=== PATIENT | male | born 1935 | race Asian ===

== ENCOUNTER 2017-02-01 05:49 | Inpatient (IN) | payer MEDICARE, OTHER ==
[~2017-02-01] VITALS: Ht 172.7 cm; Wt 74.8 kg
[2017-02-01] MEDS ORDERED: ALBUTEROL SULFATE 2.5 MG/0.5 ML NEB SOLUTION NEB ONE ×2 (06:00→06:02)
[2017-02-01] MEDS ORDERED: IPRATROPIUM BROMIDE 0.5 MG/2.5 ML NEB SOLUTION NEB ONE ×2 (06:00→06:02)
[2017-02-01] MEDS ORDERED: 0.9% SODIUM CHLORIDE 5 ML NEB SOLUTION NEB ONE (06:07)
[2017-02-01] MEDS ORDERED: FISH1CAP27 PO (06:13)
[2017-02-01] MEDS ORDERED: GABA-531 PO (06:13)
[2017-02-01] MEDS ORDERED: AMLO-512 PO (06:13)
[2017-02-01] MEDS ORDERED: LINA5TAB PO (06:13)
[2017-02-01] MEDS ORDERED: ATOR20TA86 PO (06:13)
[2017-02-01] MEDS ORDERED: VALS160T2 PO (06:13)
[2017-02-01] MEDS ORDERED: PIOG30TA2 PO (06:13)
[2017-02-01] MEDS ORDERED: METO-325 PO (06:13)
[2017-02-01] MEDS ORDERED: SPIR25 PO (06:13)
[2017-02-01] MEDS ORDERED: FUROSEMIDE 40 MG/4 ML VIAL IVP ONE (06:30)
[2017-02-01 06:40] LABS: BASOPHILS % (AUTO) 0.4 % (0.0-2.0); EOSINOPHILS % (AUTO) 4.6 % (1.0-6.0); HEMATOCRIT 46.6 % (41-53); HEMOGLOBIN 15.4 g/dL (13.5-17.5); LYMPHOCYTES # (AUTO) 2.8 K/uL (1.0-4.8); LYMPHOCYTES % (AUTO) 36.7 % (22.0-44.0); MEAN CORPUSCULAR HEMOGLOBIN 30.2 pg (26.0-34.0); MEAN CORPUSCULAR HGB CONC 32.9 G/dL (31.0-37.0); MEAN CORPUSCULAR VOLUME 92 fL (80-100); MONOCYTES # (AUTO) 0.4 K/uL (0.1-1.0); MONOCYTES % (AUTO) 5.7 % (2.0-9.0); NEUTROPHILS % (AUTO) 52.6 % (40.0-70.0); RED BLOOD CELL COUNT(AUTO) 5.08 MIL/uL (4.50-5.90); WHITE BLOOD COUNT (AUTO) 7.6 K/uL (4.5-11.0)
[2017-02-01 06:45] LABS: ANION GAP 9 mmol/L (8-16); CALCIUM, TOTAL 8.8 mg/dL (8.8-10.5); CARBON DIOXIDE 26 mmol/L (22-29); CHLORIDE 104 mmol/L (98-107); CREATININE 1.62 mg/dL (0.60-1.30); GLOMERULAR FILTR. RATE CALC 41 mL/min (>60); POTASSIUM 4.3 mmol/L (3.5-5.1); SODIUM SERUM 139 mmol/L (136-145); UREA NITROGEN, BLOOD 20 mg/dL (7-18)
[2017-02-01 06:57] LABS: PROTHROMBIN TIME 10.9 SEC (9.4-11.6)
[2017-02-01 07:08] LABS: APPEARANCE,URINE CLEAR (CLEAR); GLUCOSE, URINE (UA) NEGATIVE (NEGATIVE); KETONES,URINE NEGATIVE (NEGATIVE); LEUKOCYTE ESTERASE ,URINE NEGATIVE (NEGATIVE); OCCULT BLOOD,URINE NEGATIVE (NEGATIVE); PROTEIN,URINE SEE CONFIRM (NEGATIVE)
[2017-02-01 07:08] LABS: B-TYPE NATRIURETIC PEPTIDE 198 pg/mL (0-100)
[2017-02-01 07:10] LABS: ALANINE AMINOTRANSFERASE 133 U/L (12-78); ALBUMIN 3.6 g/dL (3.4-5.0); ASPARTATE AMINOTRANSFERASE 94 U/L (15-37); BILIRUBIN,TOTAL 0.6 mg/dL (0.1-1.0); CREATINE KINASE MB 4.1 ng/mL (0-5); CREATINE KINASE, TOTAL 285 U/L (39-308)
[2017-02-01 07:22] LABS: ADD UA MICROSCOPIC YES
[2017-02-01 07:24] LABS: SULFOSALICYLIC ACID,URINE 2+ (Negative)
[2017-02-01 07:25] LABS: RBC,URINE None Seen /HPF (0-2); WBC,URINE 0-2 /HPF (0-5)
[2017-02-01 07:26] LABS: SQUAMOUS EPITHELIAL CELL,UR Rare /LPF (None Seen)
[2017-02-01 10:49] LABS: PLATELET COUNT (AUTO) 148 K/uL (150-450)
[2017-02-01 11:17] LABS: GLUCOSE,POINT OF CARE 69 MG/DL (70-110)
[2017-02-01 12:51] LABS: GLUCOSE,POINT OF CARE 133 MG/DL (70-110)
[2017-02-01 13:36] VITALS: BP 119/59
[2017-02-01 15:24] VITALS: BP 127/65
[2017-02-01] MEDS ORDERED: ACETAMINOPHEN 325 MG TABLET PO PRN (15:45)
[2017-02-01] MEDS ORDERED: BISACODYL 10 MG RECTAL RECTAL SUPPOSITORY PR PRN (15:45)
[2017-02-01] MEDS ORDERED: ZOLPIDEM TARTRATE 5 MG TABLET PO PRN (15:45)
[2017-02-01] MEDS ORDERED: MORPHINE SULFATE 2 MG/ML SYRINGE IVP PRN (15:45)
[2017-02-01] MEDS ORDERED: HYDROCODONE/ACETAMINOPHEN 5-325 MG TABLET PO PRN (15:45)
[2017-02-01] MEDS ORDERED: MAGNESIUM HYDROXIDE SUSPENSION 30 ML UDCUP PO PRN (15:45)
[2017-02-01] MEDS ORDERED: ONDANSETRON HCL 4 MG/2 ML VIAL IVP PRN (15:45)
[2017-02-01] MEDS ORDERED: DEXTROSE 50%-WATER 25 GM/50 ML SYRINGE IVP PRN (16:00)
[2017-02-01] MEDS: HEPARIN SODIUM,PORCINE 5,000 UNITS/ML VIAL SQ SCH ×2 (16:11→23:31)
[2017-02-01 19:17] VITALS: BP 145/70
[2017-02-01] MEDS: GABAPENTIN 300 MG CAPSULE PO SCH (22:04)
[2017-02-01] MEDS: FISH OIL/OMEGA-3 FATTY ACIDS 500 MG CAPSULE PO SCH (22:04)
[2017-02-01] MEDS: DOCUSATE SODIUM 100 MG CAPSULE PO SCH (22:04)
[2017-02-01 23:29] VITALS: BP 154/73
[2017-02-02 05:12] VITALS: BP 153/68
[2017-02-02] MEDS: INSULIN ASPART 100 UNITS/ML SQ PRN (06:20)
[2017-02-02 07:49] VITALS: BP 159/71
[2017-02-02] MEDS: FISH OIL/OMEGA-3 FATTY ACIDS 500 MG CAPSULE PO SCH ×2 (08:11→21:12)
[2017-02-02] MEDS: GABAPENTIN 300 MG CAPSULE PO SCH ×2 (08:11→21:13)
[2017-02-02] MEDS: SPIRONOLACTONE 25 MG TABLET PO SCH (08:11)
[2017-02-02] MEDS: PANTOPRAZOLE SODIUM 40 MG DR TABLET PO SCH (08:11)
[2017-02-02] MEDS: HEPARIN SODIUM,PORCINE 5,000 UNITS/ML VIAL SQ SCH ×2 (08:11→16:44)
[2017-02-02] MEDS: FUROSEMIDE 20 MG/2 ML VIAL IVP SCH (08:11)
[2017-02-02] MEDS: ATORVASTATIN CALCIUM 20 MG TABLET PO SCH (08:11)
[2017-02-02] MEDS: DOCUSATE SODIUM 100 MG CAPSULE PO SCH ×2 (08:11→21:13)
[2017-02-02 11:09] VITALS: BP 148/71
[2017-02-02 12:27] LABS: GLUCOSE,POINT OF CARE 126 MG/DL (70-110)
[2017-02-02 16:00] VITALS: BP 138/75
[2017-02-02 18:08] LABS: GLUCOSE,POINT OF CARE 120 MG/DL (70-110)
[2017-02-02 18:08] LABS: GLUCOSE,POINT OF CARE 135 MG/DL (70-110)
[2017-02-02 18:12] LABS: GLUCOSE COMMENT 1 Received Meds; GLUCOSE,POINT OF CARE 143 MG/DL (70-110)
[2017-02-02 18:12] LABS: GLUCOSE,POINT OF CARE 130 MG/DL (70-110)
[2017-02-02 19:52] VITALS: BP 156/79
[2017-02-02 23:07] LABS: GLUCOSE COMMENT 1 Received Meds; GLUCOSE,POINT OF CARE 168 MG/DL (70-110)
[2017-02-02 23:36] VITALS: BP 149/75
[2017-02-03] MEDS: HEPARIN SODIUM,PORCINE 5,000 UNITS/ML VIAL SQ SCH ×3 (00:41→17:51)
[2017-02-03 04:49] VITALS: BP 150/78
[2017-02-03 06:56] LABS: BASOPHILS % (AUTO) 0.6 % (0.0-2.0); EOSINOPHILS % (AUTO) 5.8 % (1.0-6.0); HEMATOCRIT 46.7 % (41-53); HEMOGLOBIN 15.5 g/dL (13.5-17.5); LYMPHOCYTES # (AUTO) 2.1 K/uL (1.0-4.8); LYMPHOCYTES % (AUTO) 34.9 % (22.0-44.0); MEAN CORPUSCULAR HEMOGLOBIN 30.5 pg (26.0-34.0); MEAN CORPUSCULAR HGB CONC 33.2 G/dL (31.0-37.0); MEAN CORPUSCULAR VOLUME 92 fL (80-100); MONOCYTES # (AUTO) 0.5 K/uL (0.1-1.0); MONOCYTES % (AUTO) 7.5 % (2.0-9.0); NEUTROPHILS # (AUTO) 3.1 K/uL (1.8-7.7); NEUTROPHILS % (AUTO) 51.2 % (40.0-70.0); PLATELET COUNT (AUTO) 152 K/uL (150-450); RED BLOOD CELL COUNT(AUTO) 5.08 MIL/uL (4.50-5.90); RED CELL DISTRIBUTION WIDTH 13.4 % (11.5-14.5)
[2017-02-03 07:18] LABS: ALBUMIN 3.4 g/dL (3.4-5.0); BILIRUBIN,TOTAL 0.8 mg/dL (0.1-1.0); CALCIUM, TOTAL 8.9 mg/dL (8.8-10.5); CREATININE 1.51 mg/dL (0.60-1.30); POTASSIUM 4.4 mmol/L (3.5-5.1); TOTAL PROTEIN, SERUM 7.9 g/dL (6.4-8.2)
[2017-02-03 07:59] VITALS: BP 138/87
[2017-02-03] MEDS: FUROSEMIDE 20 MG/2 ML VIAL IVP SCH (08:43)
[2017-02-03] MEDS: DOCUSATE SODIUM 100 MG CAPSULE PO SCH ×2 (08:43→20:52)
[2017-02-03] MEDS: ATORVASTATIN CALCIUM 20 MG TABLET PO SCH (08:43)
[2017-02-03] MEDS: FISH OIL/OMEGA-3 FATTY ACIDS 500 MG CAPSULE PO SCH ×2 (08:44→20:52)
[2017-02-03] MEDS: GABAPENTIN 300 MG CAPSULE PO SCH ×2 (08:44→20:52)
[2017-02-03] MEDS: PANTOPRAZOLE SODIUM 40 MG DR TABLET PO SCH (08:44)
[2017-02-03 11:49] VITALS: BP 152/79
[2017-02-03] MEDS: SPIRONOLACTONE 25 MG TABLET PO SCH (11:56)
[2017-02-03 15:31] LABS: GLUCOSE,POINT OF CARE 119 MG/DL (70-110)
[2017-02-03 16:39] VITALS: BP 141/70
[2017-02-03] MEDS: INSULIN ASPART 100 UNITS/ML SQ PRN (17:55)
[2017-02-03 19:19] VITALS: BP 157/72
[2017-02-03 22:42] LABS: GLUCOSE COMMENT 1 Received Meds; GLUCOSE,POINT OF CARE 160 MG/DL (70-110)
[2017-02-03 23:57] VITALS: BP 130/72
[2017-02-04] MEDS: HEPARIN SODIUM,PORCINE 5,000 UNITS/ML VIAL SQ SCH ×3 (00:14→16:33)
[2017-02-04] MEDS ORDERED: SODIUM CHLORIDE 3% 15 ML NEB SOLUTION NEB ONE ×2 (01:13→10:34)
[2017-02-04 05:02] VITALS: BP 143/73
[2017-02-04 07:36] LABS: GLUCOSE,POINT OF CARE 127 MG/DL (70-110)
[2017-02-04 07:53] VITALS: BP 153/71
[2017-02-04] MEDS: FISH OIL/OMEGA-3 FATTY ACIDS 500 MG CAPSULE PO SCH ×2 (08:44→21:20)
[2017-02-04] MEDS: SPIRONOLACTONE 25 MG TABLET PO SCH (08:44)
[2017-02-04] MEDS: DOCUSATE SODIUM 100 MG CAPSULE PO SCH ×2 (08:44→21:19)
[2017-02-04] MEDS: FUROSEMIDE 20 MG TABLET PO SCH (08:44)
[2017-02-04] MEDS: GABAPENTIN 300 MG CAPSULE PO SCH ×2 (08:44→21:19)
[2017-02-04] MEDS: ATORVASTATIN CALCIUM 20 MG TABLET PO SCH (08:44)
[2017-02-04] MEDS: PANTOPRAZOLE SODIUM 40 MG DR TABLET PO SCH (08:44)
[2017-02-04 11:45] VITALS: BP 151/84
[2017-02-04 15:58] VITALS: BP 144/97
[2017-02-04 20:20] VITALS: BP 154/78
[2017-02-04] MEDS: INSULIN ASPART 100 UNITS/ML SQ PRN (21:25)
[2017-02-04 23:33] VITALS: BP 144/75
[2017-02-05] MEDS: HEPARIN SODIUM,PORCINE 5,000 UNITS/ML VIAL SQ SCH ×5 (00:20→23:21)
[2017-02-05 04:29] VITALS: BP 147/75
[2017-02-05] MEDS ORDERED: SODIUM CHLORIDE 3% 15 ML NEB SOLUTION NEB ONE ×3 (05:48→23:17)
[2017-02-05 07:27] LABS: GLUCOSE,POINT OF CARE 209 MG/DL (70-110)
[2017-02-05 07:54] VITALS: BP 157/67
[2017-02-05] MEDS: ATORVASTATIN CALCIUM 20 MG TABLET PO SCH (08:04)
[2017-02-05] MEDS: FISH OIL/OMEGA-3 FATTY ACIDS 500 MG CAPSULE PO SCH ×2 (08:04→21:00)
[2017-02-05] MEDS: SPIRONOLACTONE 25 MG TABLET PO SCH (08:05)
[2017-02-05] MEDS: PANTOPRAZOLE SODIUM 40 MG DR TABLET PO SCH (08:05)
[2017-02-05] MEDS: GABAPENTIN 300 MG CAPSULE PO SCH ×2 (08:05→21:00)
[2017-02-05] MEDS: DOCUSATE SODIUM 100 MG CAPSULE PO SCH ×2 (08:05→21:00)
[2017-02-05] MEDS: FUROSEMIDE 20 MG TABLET PO SCH (08:05)
[2017-02-05] MEDS: INSULIN ASPART 100 UNITS/ML SQ PRN ×2 (11:46→18:12)
[2017-02-05 11:51] VITALS: BP 121/85
[2017-02-05 11:59] LABS: GLUCOSE,POINT OF CARE 105 MG/DL (70-110)
[2017-02-05 11:59] LABS: GLUCOSE,POINT OF CARE 118 MG/DL (70-110)
[2017-02-05 12:03] LABS: GLUCOSE,POINT OF CARE 135 MG/DL (70-110)
[2017-02-05 15:15] VITALS: BP 139/68
[2017-02-05 17:22] LABS: GLUCOSE COMMENT 1 Received Meds; GLUCOSE,POINT OF CARE 196 MG/DL (70-110)
[2017-02-05 19:34] VITALS: BP 148/70
[2017-02-05 23:42] VITALS: BP 112/76
[2017-02-06 04:43] VITALS: BP 145/73
[2017-02-06 07:49] VITALS: BP 158/78
[2017-02-06] MEDS: PANTOPRAZOLE SODIUM 40 MG DR TABLET PO SCH (08:02)
[2017-02-06] MEDS: ATORVASTATIN CALCIUM 20 MG TABLET PO SCH (08:02)
[2017-02-06] MEDS: FUROSEMIDE 20 MG TABLET PO SCH (08:03)
[2017-02-06] MEDS: SPIRONOLACTONE 25 MG TABLET PO SCH (08:03)
[2017-02-06] MEDS: GABAPENTIN 300 MG CAPSULE PO SCH ×2 (08:03→21:40)
[2017-02-06] MEDS: FISH OIL/OMEGA-3 FATTY ACIDS 500 MG CAPSULE PO SCH ×2 (08:03→21:42)
[2017-02-06] MEDS: DOCUSATE SODIUM 100 MG CAPSULE PO SCH ×2 (08:03→21:40)
[2017-02-06 11:44] VITALS: BP 141/66
[2017-02-06 11:48] LABS: GLUCOSE,POINT OF CARE 131 MG/DL (70-110)
[2017-02-06] MEDS: INSULIN ASPART 100 UNITS/ML SQ PRN ×3 (12:04→21:44)
[2017-02-06 15:31] VITALS: BP 144/80
[2017-02-06] MEDS: HEPARIN SODIUM,PORCINE 5,000 UNITS/ML VIAL SQ SCH (18:18)
[2017-02-06 18:57] LABS: GLUCOSE,POINT OF CARE 172 MG/DL (70-110)
[2017-02-06 19:41] LABS: GLUCOSE,POINT OF CARE 137 MG/DL (70-110)
[2017-02-06 19:59] VITALS: BP 152/71
[2017-02-07] VITALS (7 sets, daily range): BP systolic 141–163; BP diastolic 58–80
[2017-02-07] MEDS: HEPARIN SODIUM,PORCINE 5,000 UNITS/ML VIAL SQ SCH ×3 (00:11→17:17)
[2017-02-07] MEDS: ATORVASTATIN CALCIUM 20 MG TABLET PO SCH (09:03)
[2017-02-07] MEDS: FUROSEMIDE 20 MG TABLET PO SCH (09:03)
[2017-02-07] MEDS: SPIRONOLACTONE 25 MG TABLET PO SCH (09:07)
[2017-02-07] MEDS: DOCUSATE SODIUM 100 MG CAPSULE PO SCH ×2 (09:07→21:57)
[2017-02-07] MEDS: PANTOPRAZOLE SODIUM 40 MG DR TABLET PO SCH (09:07)
[2017-02-07] MEDS: GABAPENTIN 300 MG CAPSULE PO SCH ×2 (09:07→21:57)
[2017-02-07] MEDS: FISH OIL/OMEGA-3 FATTY ACIDS 500 MG CAPSULE PO SCH ×2 (09:08→21:56)
[2017-02-07 17:11] LABS: COCCIDIOIDES AB BY CF(TITER) Negative (Neg:<1:2)
[2017-02-07] MEDS: INSULIN ASPART 100 UNITS/ML SQ PRN (22:06)
[2017-02-08] MEDS: HEPARIN SODIUM,PORCINE 5,000 UNITS/ML VIAL SQ SCH ×2 (00:02→09:15)
[2017-02-08 04:22] VITALS: BP 145/74
[2017-02-08] MEDS: INSULIN ASPART 100 UNITS/ML SQ PRN (06:01)
[2017-02-08] MEDS: GABAPENTIN 300 MG CAPSULE PO SCH (09:00)
[2017-02-08 09:08] VITALS: BP 175/77
[2017-02-08] MEDS: ATORVASTATIN CALCIUM 20 MG TABLET PO SCH (09:14)
[2017-02-08] MEDS: DOCUSATE SODIUM 100 MG CAPSULE PO SCH (09:14)
[2017-02-08] MEDS: SPIRONOLACTONE 25 MG TABLET PO SCH (09:14)
[2017-02-08] MEDS: FISH OIL/OMEGA-3 FATTY ACIDS 500 MG CAPSULE PO SCH (09:14)
[2017-02-08] MEDS: FUROSEMIDE 20 MG TABLET PO SCH (09:15)
[2017-02-08] MEDS: PANTOPRAZOLE SODIUM 40 MG DR TABLET PO SCH (09:15)
[2017-02-08 11:59] VITALS: BP 179/97
[2017-02-08] MEDS ORDERED: FURO20 PO (12:51)
[2017-02-10 05:27] LABS: GLUCOSE COMMENT 1 Received Meds; GLUCOSE,POINT OF CARE 138 MG/DL (70-110)
[2017-02-10 15:23] LABS: GLUCOSE COMMENT 1 Received Meds; GLUCOSE,POINT OF CARE 254 MG/DL (70-110)
[2017-02-10 15:26] LABS: GLUCOSE,POINT OF CARE 132 MG/DL (70-110)
[2017-02-10 15:27] LABS: GLUCOSE,POINT OF CARE 218 MG/DL (70-110)
[2017-02-10 15:27] LABS: GLUCOSE COMMENT 1 Received Meds; GLUCOSE,POINT OF CARE 149 MG/DL (70-110)
[2017-02-10 15:27] LABS: GLUCOSE,POINT OF CARE 127 MG/DL (70-110)
[2017-02-10 15:27] LABS: GLUCOSE COMMENT 1 Received Meds; GLUCOSE,POINT OF CARE 129 MG/DL (70-110)
[2017-02-10 15:32] LABS: GLUCOSE,POINT OF CARE 125 MG/DL (70-110)
== END 2017-02-08 14:45 | disposition home or self-care (01) | DRG 291 ==
LOC: EMS 05:53 → 5S 11:43 → 5N 02-03 06:28
PROVIDERS: ADMIT Internal Medicine; ATTEND Internal Medicine
DX: I13.0 Hypertensive heart and chronic kidney disease with heart failure and stage 1 through stage 4 chronic kidney disease, or unspecified chronic kidney disease (principal); I50.43 Acute on chronic combined systolic (congestive) and diastolic (congestive) heart failure; A15.9 Respiratory tuberculosis unspecified; E11.22 Type 2 diabetes mellitus with diabetic chronic kidney disease; N18.3 Chronic kidney disease, stage 3 (moderate); J98.4 Other disorders of lung; E78.5 Hyperlipidemia, unspecified; J47.9 Bronchiectasis, uncomplicated; T44.7X5A Adverse effect of beta-adrenoreceptor antagonists, initial encounter; E78.00 Pure hypercholesterolemia, unspecified; J44.9 Chronic obstructive pulmonary disease, unspecified; I49.8 Other specified cardiac arrhythmias; Z79.899 Other long term (current) drug therapy; Y93.89 Activity, other specified; Y92.89 Other specified places as the place of occurrence of the external cause; Y99.8 Other external cause status; Z87.09 Personal history of other diseases of the respiratory system
CPT/HCPCS: 71250; 82962; 86480; 86635; 87015; 87149; 87188; 93005; 93306; 94640; 96374; 99285; J1644; J1940

== ENCOUNTER 2017-02-13 00:43 | Inpatient (IN) | payer MEDICARE, OTHER ==
[~2017-02-13] VITALS: Ht 167.6 cm; Wt 77.0 kg
[2017-02-13] VITALS (16 sets, daily range): BP systolic 120–178; BP diastolic 45–92
[~2017-02-13 00:43] MED LIST: AMLO-512 PO; ATOR20TA86 PO; FISH1CAP27 PO; FURO20 PO; GABA-531 PO; LINA5TAB PO; PIOG30TA2 PO; SPIR25 PO; VALS160T2 PO
[2017-02-13] MEDS ORDERED: METO-325 PO (00:55)
[2017-02-13 01:59] LABS: BASOPHILS # (AUTO) 0.02 K/uL (0.00-0.20); BASOPHILS % (AUTO) 0.3 % (0.0-2.0); EOSINOPHILS # (AUTO) 0.29 K/uL (0.00-0.70); HEMATOCRIT 44.3 % (41-53); HEMOGLOBIN 14.9 g/dL (13.5-17.5); LYMPHOCYTES # (AUTO) 2.5 K/uL (1.0-4.8); LYMPHOCYTES % (AUTO) 36.8 % (22.0-44.0); MEAN CORPUSCULAR HEMOGLOBIN 30.8 pg (26.0-34.0); MEAN CORPUSCULAR HGB CONC 33.7 G/dL (31.0-37.0); MEAN CORPUSCULAR VOLUME 91 fL (80-100); MONOCYTES # (AUTO) 0.5 K/uL (0.1-1.0); MONOCYTES % (AUTO) 7.9 % (2.0-9.0); NEUTROPHILS # (AUTO) 3.4 K/uL (1.8-7.7); NEUTROPHILS % (AUTO) 50.7 % (40.0-70.0); PLATELET COUNT (AUTO) 162 K/uL (150-450); RED BLOOD CELL COUNT(AUTO) 4.85 MIL/uL (4.50-5.90); RED CELL DISTRIBUTION WIDTH 13.5 % (11.5-14.5); WHITE BLOOD COUNT (AUTO) 6.7 K/uL (4.5-11.0)
[2017-02-13 02:18] LABS: ANION GAP 10 mmol/L (8-16); CARBON DIOXIDE 27 mmol/L (22-29); CHLORIDE 100 mmol/L (98-107); GLOMERULAR FILTR. RATE CALC 34 mL/min (>60); POTASSIUM 4.7 mmol/L (3.5-5.1); SODIUM SERUM 137 mmol/L (136-145); UREA NITROGEN, BLOOD 37 mg/dL (7-18)
[2017-02-13 02:25] LABS: ALANINE AMINOTRANSFERASE 63 U/L (12-78); ALBUMIN 4.1 g/dL (3.4-5.0); ASPARTATE AMINOTRANSFERASE 28 U/L (15-37); BILIRUBIN,TOTAL 0.5 mg/dL (0.1-1.0); TOTAL PROTEIN, SERUM 8.8 g/dL (6.4-8.2)
[2017-02-13] MEDS ORDERED: SODIUM CHLORIDE 0.9% 500 ML IV ONE ×2 (02:30→16:47)
[2017-02-13 02:37] LABS: APPEARANCE,URINE CLEAR (CLEAR); GLUCOSE, URINE (UA) NEGATIVE (NEGATIVE); KETONES,URINE NEGATIVE (NEGATIVE); LEUKOCYTE ESTERASE ,URINE NEGATIVE (NEGATIVE); OCCULT BLOOD,URINE NEGATIVE (NEGATIVE); PROTEIN,URINE NEGATIVE (NEGATIVE)
[2017-02-13 02:50] LABS: RBC,URINE None Seen /HPF (0-2); WBC,URINE None Seen /HPF (0-5)
[2017-02-13] MEDS ORDERED: ACETAMINOPHEN 325 MG TABLET PO PRN ×2 (04:15→04:30)
[2017-02-13] MEDS ORDERED: OxyCODONE HCL/ACETAMINOPHEN 5-325 MG TABLET PO PRN (04:15)
[2017-02-13] MEDS ORDERED: ZOLPIDEM TARTRATE 5 MG TABLET PO PRN (04:15)
[2017-02-13] MEDS ORDERED: ONDANSETRON HCL 4 MG/2 ML VIAL IVP PRN (04:30)
[2017-02-13] MEDS ORDERED: 0.9% SODIUM CHLORIDE 10 ML SYRINGE IVP PRN ×2 (04:30→14:00)
[2017-02-13] MEDS: SPIRONOLACTONE 25 MG TABLET PO SCH (08:21)
[2017-02-13] MEDS: GABAPENTIN 300 MG CAPSULE PO SCH ×2 (08:21→20:53)
[2017-02-13] MEDS: PIOGLITAZONE HCL 30 MG TABLET PO SCH (08:21)
[2017-02-13] MEDS: VALSARTAN 160 MG TABLET PO SCH (08:21)
[2017-02-13] MEDS: HEPARIN SODIUM,PORCINE 5,000 UNITS/ML VIAL SQ SCH ×2 (08:21→16:00)
[2017-02-13] MEDS: ATORVASTATIN CALCIUM 20 MG TABLET PO SCH (08:21)
[2017-02-13] MEDS: PANTOPRAZOLE SODIUM 40 MG DR TABLET PO SCH (08:22)
[2017-02-13] MEDS: AmLODIPine BESYLATE 10 MG TABLET PO SCH (08:22)
[2017-02-13] MEDS: LinaGLIPtin 5 MG TABLET PO SCH (08:26)
[2017-02-13] MEDS ORDERED: PNEUMOCOCCAL VACCINE POLYVALENT 0.5 ML VIAL [PPSV23] IM ONE (15:30)
[2017-02-13] MEDS ORDERED: IOHEXOL 300 MG/ML 50 ML VIAL ONE (16:19)
[2017-02-13] MEDS ORDERED: MIDAZOLAM HCL 2 MG/2 ML VIAL ONE (16:19)
[2017-02-13] MEDS ORDERED: LIDOCAINE HCL/PF 1% 30 ML VIAL ONE (16:19)
[2017-02-13] MEDS ORDERED: SODIUM BICARBONATE 50 MEQ/50 ML VIAL ONE (16:19)
[2017-02-13] MEDS ORDERED: FentaNYL CITRATE-PF 100 MCG/2 ML VIAL ONE (16:19)
[2017-02-13] MEDS ORDERED: LIDOCAINE 1% 30 ML/SOD BICARB 8.4% 4 ML SQ ONE (17:00)
[2017-02-13] MEDS ORDERED: IOHEXOL 300 MG/ML 50 ML VIAL IVP ONE (17:00)
[2017-02-13] MEDS ORDERED: MIDAZOLAM HCL 2 MG/2 ML VIAL IVP ONE ×2 (17:00)
[2017-02-13] MEDS ORDERED: FentaNYL CITRATE-PF 100 MCG/2 ML VIAL IVP ONE ×2 (17:00)
[2017-02-13] MEDS ORDERED: SODIUM CHLORIDE 0.9% 100 ML ONE (22:39)
[2017-02-13] MEDS: CeFAZolin 1 GM/DEXTROSE 50 ML IV SCH (22:48)
[2017-02-14 00:08] VITALS: BP 135/72
[2017-02-14] MEDS: CeFAZolin 1 GM/DEXTROSE 50 ML IV SCH ×2 (04:53→09:47)
[2017-02-14 05:05] VITALS: BP 140/72
[2017-02-14 07:18] LABS: BASOPHILS % (AUTO) 0.3 % (0.0-2.0); EOSINOPHILS % (AUTO) 4.8 % (1.0-6.0); HEMATOCRIT 41.6 % (41-53); HEMOGLOBIN 13.9 g/dL (13.5-17.5); LYMPHOCYTES # (AUTO) 1.7 K/uL (1.0-4.8); LYMPHOCYTES % (AUTO) 28.8 % (22.0-44.0); MEAN CORPUSCULAR HEMOGLOBIN 30.6 pg (26.0-34.0); MEAN CORPUSCULAR HGB CONC 33.4 G/dL (31.0-37.0); MEAN CORPUSCULAR VOLUME 92 fL (80-100); MONOCYTES # (AUTO) 0.5 K/uL (0.1-1.0); MONOCYTES % (AUTO) 8.7 % (2.0-9.0); NEUTROPHILS # (AUTO) 3.5 K/uL (1.8-7.7); NEUTROPHILS % (AUTO) 57.4 % (40.0-70.0); PLATELET COUNT (AUTO) 153 K/uL (150-450); RED BLOOD CELL COUNT(AUTO) 4.54 MIL/uL (4.50-5.90); RED CELL DISTRIBUTION WIDTH 13.3 % (11.5-14.5); WHITE BLOOD COUNT (AUTO) 6.1 K/uL (4.5-11.0)
[2017-02-14 07:30] LABS: ALBUMIN 3.1 g/dL (3.4-5.0); BILIRUBIN,TOTAL 0.4 mg/dL (0.1-1.0); CALCIUM, TOTAL 7.8 mg/dL (8.8-10.5); CREATININE 1.47 mg/dL (0.60-1.30); POTASSIUM 4.7 mmol/L (3.5-5.1); TOTAL PROTEIN, SERUM 7.2 g/dL (6.4-8.2)
[2017-02-14 08:19] VITALS: BP 134/77
[2017-02-14] MEDS: LinaGLIPtin 5 MG TABLET PO SCH (09:00)
[2017-02-14] MEDS: ATORVASTATIN CALCIUM 20 MG TABLET PO SCH (09:46)
[2017-02-14] MEDS: AmLODIPine BESYLATE 10 MG TABLET PO SCH (09:46)
[2017-02-14] MEDS: GABAPENTIN 300 MG CAPSULE PO SCH (09:46)
[2017-02-14] MEDS: PIOGLITAZONE HCL 30 MG TABLET PO SCH (09:46)
[2017-02-14] MEDS: VALSARTAN 160 MG TABLET PO SCH (09:46)
[2017-02-14] MEDS: SPIRONOLACTONE 25 MG TABLET PO SCH (09:46)
[2017-02-14] MEDS: PANTOPRAZOLE SODIUM 40 MG DR TABLET PO SCH (09:47)
[2017-02-14 12:20] VITALS: BP 132/61
[2017-02-14 15:55] VITALS: BP 140/80
== END 2017-02-14 16:30 | disposition home or self-care (01) | DRG 243 ==
LOC: EMS 00:44 → 5S 04:33
PROVIDERS: ADMIT Hospitalist; ATTEND Hospitalist
PROC: 0JH606Z Insertion of Pacemaker, Dual Chamber into Chest Subcutaneous Tissue and Fascia, Open Approach (ICD-10-PCS; principal; 2017-02-13)
PROC: 02H63JZ Insertion of Pacemaker Lead into Right Atrium, Percutaneous Approach (ICD-10-PCS; 2017-02-13)
PROC: 02HK3JZ Insertion of Pacemaker Lead into Right Ventricle, Percutaneous Approach (ICD-10-PCS; 2017-02-13)
PROC: 3E0234Z Introduction of Serum, Toxoid and Vaccine into Muscle, Percutaneous Approach (ICD-10-PCS; 2017-02-14)
DX: I49.5 Sick sinus syndrome (principal); I13.0 Hypertensive heart and chronic kidney disease with heart failure and stage 1 through stage 4 chronic kidney disease, or unspecified chronic kidney disease; I50.42 Chronic combined systolic (congestive) and diastolic (congestive) heart failure; N17.9 Acute kidney failure, unspecified; E78.00 Pure hypercholesterolemia, unspecified; E11.22 Type 2 diabetes mellitus with diabetic chronic kidney disease; E78.5 Hyperlipidemia, unspecified; J44.9 Chronic obstructive pulmonary disease, unspecified; I44.30 Unspecified atrioventricular block; J84.10 Pulmonary fibrosis, unspecified; T44.7X5A Adverse effect of beta-adrenoreceptor antagonists, initial encounter; N18.3 Chronic kidney disease, stage 3 (moderate); I44.39 Other atrioventricular block; Z23 Encounter for immunization; Z79.899 Other long term (current) drug therapy; X58.XXXA Exposure to other specified factors, initial encounter; Y93.89 Activity, other specified; Y92.89 Other specified places as the place of occurrence of the external cause; Y99.8 Other external cause status
CPT/HCPCS: 33208; 36005; 71020; 76000; 87081; 90471; 93005; 96360; 99285; G0480; J0690; J1644; J2250; J3010; J3490; J7050; Q9967

== ENCOUNTER 2017-05-11 22:45 | Emergency (ER) | payer MEDICARE, OTHER ==
[~2017-05-11] VITALS: Ht 167.6 cm; Wt 77.3 kg
[~2017-05-11 22:45] MED LIST changes: -FURO20 PO; -GABA-531 PO; -LINA5TAB PO; -VALS160T2 PO
[2017-05-12 00:03] LABS: BASOPHILS % (AUTO) 0.3 % (0.0-2.0); EOSINOPHILS % (AUTO) 3.2 % (1.0-6.0); HEMATOCRIT 36.6 % (41-53); HEMOGLOBIN 12.7 g/dL (13.5-17.5); LYMPHOCYTES # (AUTO) 2.4 K/uL (1.0-4.8); LYMPHOCYTES % (AUTO) 38.3 % (22.0-44.0); MEAN CORPUSCULAR HEMOGLOBIN 32.2 pg (26.0-34.0); MEAN CORPUSCULAR HGB CONC 34.5 G/dL (31.0-37.0); MEAN CORPUSCULAR VOLUME 93 fL (80-100); MONOCYTES # (AUTO) 0.4 K/uL (0.1-1.0); MONOCYTES % (AUTO) 6.9 % (2.0-9.0); NEUTROPHILS # (AUTO) 3.2 K/uL (1.8-7.7); NEUTROPHILS % (AUTO) 51.3 % (40.0-70.0); PLATELET COUNT (AUTO) 140 K/uL (150-450); RED BLOOD CELL COUNT(AUTO) 3.93 MIL/uL (4.50-5.90); RED CELL DISTRIBUTION WIDTH 13.7 % (11.5-14.5); WHITE BLOOD COUNT (AUTO) 6.2 K/uL (4.5-11.0)
[2017-05-12 00:11] LABS: CALCIUM, TOTAL 8.5 mg/dL (8.8-10.5); CREATININE 1.32 mg/dL (0.60-1.30); POTASSIUM 3.7 mmol/L (3.5-5.1)
[2017-05-12 00:13] LABS: PROTHROMBIN TIME 10.7 SEC (9.4-11.6)
[2017-05-12 00:18] LABS: ALBUMIN 3.7 g/dL (3.4-5.0); BILIRUBIN,TOTAL 0.4 mg/dL (0.1-1.0); TOTAL PROTEIN, SERUM 7.4 g/dL (6.4-8.2)
[2017-05-12 00:31] LABS: B-TYPE NATRIURETIC PEPTIDE 27 pg/mL (0-100)
[2017-05-12 00:36] LABS: CREATINE KINASE MB 2.8 ng/mL (0-5); CREATINE KINASE, TOTAL 320 U/L (39-308)
[2017-05-12 00:52] VITALS: BP 152/87
== END 2017-05-12 01:21 | disposition home or self-care (01) ==
LOC: EMS 22:48
DX: I10 Essential (primary) hypertension (principal); E78.00 Pure hypercholesterolemia, unspecified; E11.9 Type 2 diabetes mellitus without complications
CPT/HCPCS: 93005; 99285

== ENCOUNTER 2017-07-26 21:38 | Emergency (ER) | payer MEDICARE, OTHER ==
[~2017-07-26] VITALS: Ht 167.6 cm; Wt 79.5 kg
[2017-07-26 21:52] LABS: GLUCOSE,POINT OF CARE 89 MG/DL (70-110)
[2017-07-26] MEDS ORDERED: RIFA300 PO (21:55)
[2017-07-26] MEDS ORDERED: ASPI-1093 PO (21:55)
[2017-07-26] MEDS ORDERED: ISON300 PO (21:55)
[2017-07-26] MEDS ORDERED: PYRI50 PO (21:55)
[2017-07-26] MEDS ORDERED: INSLAN SQ (21:55)
[2017-07-26] MEDS ORDERED: VITAD1000 PO (21:55)
[2017-07-26] MEDS ORDERED: VALS160T2 PO (21:55)
[2017-07-26] MEDS ORDERED: ICOS1CAP PO (21:55)
[2017-07-26] MEDS ORDERED: HYDR10TA31 PO (21:55)
[2017-07-26 22:35] VITALS: BP 144/90
== END 2017-07-26 22:49 | disposition home or self-care (01) ==
LOC: EMS 21:39
DX: I10 Essential (primary) hypertension (principal); E11.9 Type 2 diabetes mellitus without complications; E78.00 Pure hypercholesterolemia, unspecified; Z88.8 Allergy status to other drugs, medicaments and biological substances; Z79.82 Long term (current) use of aspirin; Z79.899 Other long term (current) drug therapy
CPT/HCPCS: 82962; 99283

== ENCOUNTER → 2018-10-05 | Outpatient (CLI) | payer MEDICARE, OTHER ==
[~2018-10-05] MED LIST changes: +ASPI-1182 PO; -FISH1CAP27 PO; +HYDR10TA31 PO; +ICOS1CAP PO; +INSLAN SQ; +ISON300 PO; -PIOG30TA2 PO; +PYRI50 PO; +RIFA300 PO; +VALS160T2 PO; +VITAD1000 PO
== END | disposition home or self-care (01) ==
LOC: RADPV 08:59
PROVIDERS: ATTEND Internal Medicine Nephrology
DX: I12.9 Hypertensive chronic kidney disease with stage 1 through stage 4 chronic kidney disease, or unspecified chronic kidney disease (principal); E11.22 Type 2 diabetes mellitus with diabetic chronic kidney disease; N18.4 Chronic kidney disease, stage 4 (severe); E78.00 Pure hypercholesterolemia, unspecified
CPT/HCPCS: 76770

== ENCOUNTER → 2018-12-06 | Outpatient (CLI) | payer MEDICARE, OTHER ==
[2018-12-06 11:44] LABS: HEMATOCRIT 33.1 % (41-53); HEMOGLOBIN 11.5 g/dL (13.5-17.5)
[2018-12-06 11:52] LABS: ALBUMIN 3.9 g/dL (3.4-5.0); BILIRUBIN,TOTAL 0.4 mg/dL (0.1-1.0); CALCIUM, TOTAL 8.9 mg/dL (8.8-10.5); CHOL/HDL RATIO 8.7 (4.2-7.3); CREATININE 2.47 mg/dL (0.60-1.30); POTASSIUM 5.1 mmol/L (3.5-5.1); TOTAL PROTEIN, SERUM 8.6 g/dL (6.4-8.2)
[2018-12-06 12:28] LABS: CREATININE,URINE RANDOM 83.2 mg/dL (30.0-125.0)
[2018-12-06 12:40] LABS: HEMOGLOBIN A1C 7.1 % (4.5-6.2)
[2018-12-06 16:18] LABS: CREATININE,URINE 50.1 mg/dL (30.0-125.0)
[2018-12-06 16:44] LABS: CREATININE,SERUM FOR CRCL 2.47 mg/dL (0.60-1.30)
== END | disposition home or self-care (01) ==
LOC: LABPV 09:18
PROVIDERS: ATTEND Internal Medicine Nephrology
DX: E55.9 Vitamin D deficiency, unspecified (principal); E11.22 Type 2 diabetes mellitus with diabetic chronic kidney disease; I12.9 Hypertensive chronic kidney disease with stage 1 through stage 4 chronic kidney disease, or unspecified chronic kidney disease; N18.4 Chronic kidney disease, stage 4 (severe); D63.1 Anemia in chronic kidney disease; E78.49 Other hyperlipidemia
CPT/HCPCS: 81050; 82306; 82570; 82575; 83036; 84100; 84156; 85014; 85018

== ENCOUNTER → 2019-04-05 | Outpatient (CLI) | payer MEDICARE, OTHER ==
[2019-04-05 12:58] LABS: HEMATOCRIT 33.1 % (41-53); HEMOGLOBIN 10.9 g/dL (13.5-17.5)
[2019-04-05 13:09] LABS: CALCIUM, TOTAL 9.3 mg/dL (8.8-10.5); CREATININE 3.04 mg/dL (0.60-1.30); POTASSIUM 5.7 mmol/L (3.5-5.1)
[2019-04-05 13:19] LABS: VITAMIN B12 LEVEL 1185 pg/mL (211-911)
[2019-04-05 13:29] LABS: FOLATE SERUM > 24.0 ng/mL (5.4-)
[2019-04-05 14:09] LABS: % IRON SATURATION 27.8 % (30-44)
== END | disposition home or self-care (01) ==
LOC: LABPV 09:56
PROVIDERS: ATTEND Internal Medicine Nephrology
DX: I12.9 Hypertensive chronic kidney disease with stage 1 through stage 4 chronic kidney disease, or unspecified chronic kidney disease (principal); E11.22 Type 2 diabetes mellitus with diabetic chronic kidney disease; D63.1 Anemia in chronic kidney disease; N18.4 Chronic kidney disease, stage 4 (severe); E78.00 Pure hypercholesterolemia, unspecified; J44.9 Chronic obstructive pulmonary disease, unspecified; Z88.8 Allergy status to other drugs, medicaments and biological substances
CPT/HCPCS: 82607; 82746; 83540; 83550; 85014; 85018

== ENCOUNTER → 2019-05-05 | Outpatient (CLI) | payer MEDICARE, OTHER | END | disposition home or self-care (01) | LOC: RADPV 13:35 | PROVIDERS: ATTEND Internal Medicine Cardiovascular Disease | DX: I08.8 Other rheumatic multiple valve diseases (principal) | CPT/HCPCS: 93306 ==

== ENCOUNTER → 2019-06-20 | Outpatient (CLI) | payer MEDICARE, OTHER ==
[~2019-06-20] MED LIST changes: -AMLO-512 PO; +AMLO10TA7 PO
[2019-06-21 11:10] LABS: HEMATOCRIT 36.5 % (41-53); HEMOGLOBIN 11.9 g/dL (13.5-17.5)
[2019-06-21 11:25] LABS: CALCIUM, TOTAL 9.4 mg/dL (8.8-10.5); CHOL/HDL RATIO 4.3 (4.2-7.3); CREATININE 3.16 mg/dL (0.60-1.30); POTASSIUM 5.1 mmol/L (3.5-5.1)
[2019-06-21 11:27] LABS: APPEARANCE,URINE CLEAR (CLEAR); BILIRUBIN,URINE NEGATIVE (NEGATIVE); GLUCOSE, URINE (UA) NEGATIVE (NEGATIVE); KETONES,URINE NEGATIVE (NEGATIVE); LEUKOCYTE ESTERASE ,URINE NEGATIVE (NEGATIVE); NITRATE,URINE NEGATIVE (NEGATIVE); OCCULT BLOOD,URINE NEGATIVE (NEGATIVE); PH,URINE 5.5 (5.0-8.0); PROTEIN,URINE NEGATIVE (NEGATIVE); UROBILINOGEN,URINE 0.2 mg/dL (<=1.0)
[2019-06-21 11:43] LABS: BACTERIA,URINE None Seen /HPF (None Seen); RBC,URINE None Seen /HPF (0-2); SQUAMOUS EPITHELIAL CELL,UR Rare /LPF (None Seen); WBC,URINE None Seen /HPF (0-5)
== END | disposition home or self-care (01) ==
LOC: LABPV 10:05
PROVIDERS: ATTEND Internal Medicine Nephrology
DX: I12.9 Hypertensive chronic kidney disease with stage 1 through stage 4 chronic kidney disease, or unspecified chronic kidney disease (principal); E11.22 Type 2 diabetes mellitus with diabetic chronic kidney disease; N18.4 Chronic kidney disease, stage 4 (severe); D63.1 Anemia in chronic kidney disease; E78.49 Other hyperlipidemia
CPT/HCPCS: 83970; 85014; 85018

== ENCOUNTER → 2019-08-24 | Outpatient (CLI) | payer MEDICARE, OTHER ==
[~2019-08-24] MED LIST changes: +ALLO100T PO; +APIX2.5T PO; +ATOR40TA28 PO; +CHOL100018 PO; +FERR-82 PEG; +FINA5TAB41 PO; +FURO40 PO; +HYDR25TA84 PO; +INSU200I SQ; +METO25 PO; +PIOG30TA10 PO; +PRED10 PO; +TAMS-13 PO; -VITAD1000 PO
[2019-08-24 13:11] LABS: HEMOGLOBIN A1C 7.7 % (4.5-6.2)
[2019-08-24 13:15] LABS: CREATININE 1.79 mg/dL (0.60-1.30); POTASSIUM 3.8 mmol/L (3.5-5.1)
[2019-08-24 13:19] LABS: CREATININE,URINE 78.1 mg/dL (30.0-125.0)
[2019-08-24 13:57] LABS: CREATININE,SERUM FOR CRCL 1.79 mg/dL (0.60-1.30)
== END | disposition home or self-care (01) ==
LOC: LABPV 11:44
PROVIDERS: ATTEND Internal Medicine Nephrology
DX: I12.9 Hypertensive chronic kidney disease with stage 1 through stage 4 chronic kidney disease, or unspecified chronic kidney disease (principal); E11.22 Type 2 diabetes mellitus with diabetic chronic kidney disease; N18.9 Chronic kidney disease, unspecified
CPT/HCPCS: 81050; 82575; 83036; 84156; 84300

== ENCOUNTER 2019-09-30 16:48 | Inpatient (IN) | payer MEDICARE, OTHER ==
[~2019-09-30] VITALS: Ht 167.6 cm; Wt 86.7 kg
[~2019-09-30 16:48] MED LIST changes: -ALLO100T PO; -APIX2.5T PO; -ATOR40TA28 PO; -FERR-82 PEG; -FINA5TAB41 PO; -FURO40 PO; -HYDR25TA84 PO; -INSU200I SQ; -METO25 PO; -PIOG30TA10 PO; -PRED10 PO; -TAMS-13 PO
[2019-09-30 17:07] LABS: GLUCOSE,POINT OF CARE 346 MG/DL (70-110)
[2019-09-30] MEDS ORDERED: ALLO100T PO (17:12)
[2019-09-30] MEDS ORDERED: HYDR25TA84 PO (17:12)
[2019-09-30] MEDS ORDERED: ATOR40TA28 PO (17:12)
[2019-09-30] MEDS ORDERED: INSU200I SQ (17:15)
[2019-09-30] MEDS ORDERED: FINA5TAB41 PO (17:15)
[2019-09-30] MEDS ORDERED: METO25 PO (17:15)
[2019-09-30] MEDS ORDERED: PIOG30TA10 PO (17:15)
[2019-09-30] MEDS ORDERED: TAMS-13 PO (17:15)
[2019-09-30] MEDS ORDERED: FURO40 PO (17:15)
[2019-09-30] MEDS ORDERED: APIX2.5T PO (17:15)
[2019-09-30] MEDS ORDERED: FERR-82 PEG (17:15)
[2019-09-30] MEDS ORDERED: DOXYCYCLINE HYCLATE 100 MG in DEXTROSE 5%-WATER 100 ML IV ONE (18:00)
[2019-09-30 18:07] LABS: BASOPHILS % (AUTO) 0.7 % (0.0-2.0); EOSINOPHILS % (AUTO) 1.8 % (1.0-6.0); HEMATOCRIT 35.2 % (41-53); HEMOGLOBIN 11.9 g/dL (13.5-17.5); LYMPHOCYTES # (AUTO) 1.3 K/uL (1.0-4.8); LYMPHOCYTES % (AUTO) 20.5 % (22.0-44.0); MEAN CORPUSCULAR HEMOGLOBIN 30.9 pg (26.0-34.0); MEAN CORPUSCULAR HGB CONC 33.9 G/dL (31.0-37.0); MEAN CORPUSCULAR VOLUME 91 fL (80-100); MONOCYTES # (AUTO) 0.6 K/uL (0.1-1.0); MONOCYTES % (AUTO) 9.1 % (2.0-9.0); NEUTROPHILS # (AUTO) 4.2 K/uL (1.8-7.7); NEUTROPHILS % (AUTO) 67.9 % (40.0-70.0); PLATELET COUNT (AUTO) 220 K/uL (150-450); RED BLOOD CELL COUNT(AUTO) 3.86 MIL/uL (4.50-5.90); RED CELL DISTRIBUTION WIDTH 13.5 % (11.5-14.5)
[2019-09-30 18:14] LABS: CREATININE 1.83 mg/dL (0.60-1.30); POTASSIUM 3.6 mmol/L (3.5-5.1)
[2019-09-30] MEDS ORDERED: CefTRIAXone 1 GM/DEXTROSE 50 ML IV ONE (18:15)
[2019-09-30] MEDS ORDERED: VANCOMYCIN HCL 1 GM/D5% WATER 200 ML IV ONE (18:15)
[2019-09-30 18:18] LABS: PROTHROMBIN TIME 10.2 SEC (9.4-11.6)
[2019-09-30 18:19] LABS: ALBUMIN 3.4 g/dL (3.4-5.0); BILIRUBIN,TOTAL 0.6 mg/dL (0.1-1.0); TOTAL PROTEIN, SERUM 8.8 g/dL (6.4-8.2)
[2019-09-30] MEDS ORDERED: FUROSEMIDE 40 MG/4 ML VIAL IVP ONE (18:45)
[2019-09-30] MEDS ORDERED: ACETAMINOPHEN 325 MG TABLET PO PRN ×2 (19:00→21:15)
[2019-09-30] MEDS ORDERED: ONDANSETRON HCL 4 MG/2 ML VIAL IVP PRN ×2 (19:00→21:15)
[2019-09-30] MEDS ORDERED: 0.9% SODIUM CHLORIDE 10 ML SYRINGE IVP PRN (19:00)
[2019-09-30 20:40] LABS: APPEARANCE,URINE CLEAR (CLEAR); BILIRUBIN,URINE NEGATIVE (NEGATIVE); GLUCOSE, URINE (UA) 100 mg/dL (NEGATIVE); KETONES,URINE NEGATIVE (NEGATIVE); LEUKOCYTE ESTERASE ,URINE NEGATIVE (NEGATIVE); NITRATE,URINE NEGATIVE (NEGATIVE); OCCULT BLOOD,URINE NEGATIVE (NEGATIVE); PROTEIN,URINE NEGATIVE (NEGATIVE); UROBILINOGEN,URINE 0.2 mg/dL (<=1.0)
[2019-09-30 20:50] LABS: BACTERIA,URINE None Seen /HPF (None Seen); RBC,URINE None Seen /HPF (0-2); WBC,URINE None Seen /HPF (0-5)
[2019-09-30 20:51] LABS: SQUAMOUS EPITHELIAL CELL,UR None Seen /LPF (None Seen)
[2019-09-30 20:56] VITALS: BP 161/85
[2019-09-30] MEDS ORDERED: ZOLPIDEM TARTRATE 5 MG TABLET PO PRN (21:15)
[2019-09-30] MEDS ORDERED: *CLINICAL-LEVOFLOXACIN IVPB DOSING CLINICAL ONE (21:15)
[2019-09-30] MEDS ORDERED: MORPHINE SULFATE 2 MG/ML SYRINGE IVP PRN (21:15)
[2019-09-30] MEDS ORDERED: MAGNESIUM HYDROXIDE SUSPENSION 30 ML UDCUP PO PRN (21:15)
[2019-09-30] MEDS ORDERED: BISACODYL 10 MG RECTAL RECTAL SUPPOSITORY PR PRN (21:15)
[2019-09-30] MEDS: HYDROCODONE/ACETAMINOPHEN 5-325 MG TABLET PO PRN (23:38)
[2019-09-30 23:45] VITALS: BP 141/72
[2019-10-01] MEDS ORDERED: LEVOFLOXACIN 500 MG/D5% WATER 100 ML IV ONE (01:00)
[2019-10-01 05:24] VITALS: BP 138/78
[2019-10-01 06:46] LABS: BASOPHILS % (AUTO) 0.6 % (0.0-2.0); EOSINOPHILS % (AUTO) 3.1 % (1.0-6.0); HEMATOCRIT 30.6 % (41-53); HEMOGLOBIN 10.6 g/dL (13.5-17.5); LYMPHOCYTES # (AUTO) 1.6 K/uL (1.0-4.8); LYMPHOCYTES % (AUTO) 31.6 % (22.0-44.0); MEAN CORPUSCULAR HEMOGLOBIN 30.9 pg (26.0-34.0); MEAN CORPUSCULAR HGB CONC 34.8 G/dL (31.0-37.0); MEAN CORPUSCULAR VOLUME 89 fL (80-100); MONOCYTES # (AUTO) 0.5 K/uL (0.1-1.0); NEUTROPHILS # (AUTO) 2.8 K/uL (1.8-7.7); NEUTROPHILS % (AUTO) 55.7 % (40.0-70.0); PLATELET COUNT (AUTO) 193 K/uL (150-450); RED BLOOD CELL COUNT(AUTO) 3.44 MIL/uL (4.50-5.90); RED CELL DISTRIBUTION WIDTH 13.5 % (11.5-14.5)
[2019-10-01 07:07] LABS: ALBUMIN 2.6 g/dL (3.4-5.0); BILIRUBIN,TOTAL 0.6 mg/dL (0.1-1.0); CALCIUM, TOTAL 8.2 mg/dL (8.8-10.5); CREATININE 1.59 mg/dL (0.60-1.30); TOTAL PROTEIN, SERUM 7.2 g/dL (6.4-8.2)
[2019-10-01 07:11] LABS: POTASSIUM 2.9 mmol/L (3.5-5.1)
[2019-10-01 07:27] VITALS: BP 139/69
[2019-10-01] MEDS ORDERED: POTASSIUM CHLORIDE 20 MEQ ER TABLET PO ONE (07:45)
[2019-10-01] MEDS ORDERED: ICOSAPENT ETHYL 1 GM PO SCH (08:00)
[2019-10-01] MEDS: PIOGLITAZONE HCL 30 MG TABLET PO SCH (08:18)
[2019-10-01] MEDS: CHOLECALCIFEROL (VIT D3) 1,000 UNITS TABLET PO SCH (08:19)
[2019-10-01] MEDS: HydrALAZINE HCL 25 MG TABLET PO SCH ×4 (08:19→21:02)
[2019-10-01] MEDS: TAMSULOSIN HCL 0.4 MG CAPSULE PO SCH (08:20)
[2019-10-01] MEDS: FINASTERIDE 5 MG TABLET PO SCH (08:20)
[2019-10-01] MEDS: DOCUSATE SODIUM 100 MG CAPSULE PO SCH ×2 (08:20→21:02)
[2019-10-01] MEDS: METOPROLOL TARTRATE 25 MG TABLET PO SCH (08:20)
[2019-10-01] MEDS: FERROUS SULFATE 325 MG EC TABLET PO SCH ×2 (08:20→21:02)
[2019-10-01] MEDS: ATORVASTATIN CALCIUM 40 MG TABLET PO SCH (08:20)
[2019-10-01] MEDS: PANTOPRAZOLE SODIUM 40 MG DR TABLET PO SCH (08:20)
[2019-10-01] MEDS: APIXABAN 2.5 MG TABLET PO SCH ×2 (08:20→21:02)
[2019-10-01] MEDS: FUROSEMIDE 20 MG/2 ML VIAL IVP SCH (08:25)
[2019-10-01] MEDS ORDERED: ALLOPURINOL 100 MG TABLET PO SCH (09:00)
[2019-10-01 09:43] LABS: URIC ACID 7.4 mg/dL (2.6-7.2)
[2019-10-01] MEDS: ALLOPURINOL 100 MG TABLET PO SCH (10:38)
[2019-10-01 11:12] VITALS: BP 119/67
[2019-10-01 15:27] VITALS: BP 142/64
[2019-10-01 20:26] VITALS: BP 149/73
[2019-10-01 20:27] LABS: GLUCOMETER DEV NAME(LOC) 5N.1; GLUCOSE,POINT OF CARE 144 MG/DL (70-110)
[2019-10-01 23:59] VITALS: BP 147/72
[2019-10-02] MEDS: LEVOFLOXACIN 250 MG/D5% WATER 50 ML IV SCH (01:56)
[2019-10-02] MEDS ORDERED: SODIUM CHLORIDE 0.9% 250 ML IV ONE (01:58)
[2019-10-02 04:45] VITALS: BP 140/75
[2019-10-02 06:59] VITALS: BP 153/66
[2019-10-02 07:17] LABS: CALCIUM, TOTAL 8.7 mg/dL (8.8-10.5); CREATININE 1.8 mg/dL (0.60-1.30); POTASSIUM 3.8 mmol/L (3.5-5.1)
[2019-10-02] MEDS: FUROSEMIDE 20 MG/2 ML VIAL IVP SCH (08:41)
[2019-10-02] MEDS: APIXABAN 2.5 MG TABLET PO SCH ×2 (08:41→19:41)
[2019-10-02] MEDS: PIOGLITAZONE HCL 30 MG TABLET PO SCH (08:41)
[2019-10-02] MEDS: HydrALAZINE HCL 25 MG TABLET PO SCH ×4 (08:41→19:42)
[2019-10-02] MEDS: ALLOPURINOL 100 MG TABLET PO SCH (08:42)
[2019-10-02] MEDS: FERROUS SULFATE 325 MG EC TABLET PO SCH ×2 (08:42→19:42)
[2019-10-02] MEDS: ATORVASTATIN CALCIUM 40 MG TABLET PO SCH (08:42)
[2019-10-02] MEDS: CHOLECALCIFEROL (VIT D3) 1,000 UNITS TABLET PO SCH (08:42)
[2019-10-02] MEDS: TAMSULOSIN HCL 0.4 MG CAPSULE PO SCH (08:42)
[2019-10-02] MEDS: FINASTERIDE 5 MG TABLET PO SCH (08:42)
[2019-10-02] MEDS: METOPROLOL TARTRATE 25 MG TABLET PO SCH (08:43)
[2019-10-02] MEDS: PANTOPRAZOLE SODIUM 40 MG DR TABLET PO SCH (08:44)
[2019-10-02] MEDS: DOCUSATE SODIUM 100 MG CAPSULE PO SCH ×2 (08:52→19:42)
[2019-10-02 11:20] VITALS: BP 134/74
[2019-10-02 15:13] VITALS: BP 124/94
[2019-10-02] MEDS: PredniSONE 10 MG TABLET PO SCH ×2 (15:28→19:42)
[2019-10-02] MEDS: HYDROCODONE/ACETAMINOPHEN 5-325 MG TABLET PO PRN (19:43)
[2019-10-02 20:09] VITALS: BP 123/59
[2019-10-02 23:36] VITALS: BP 149/75
[2019-10-03] MEDS: LEVOFLOXACIN 250 MG/D5% WATER 50 ML IV SCH (01:25)
[2019-10-03 05:25] VITALS: BP 141/60
[2019-10-03 07:07] VITALS: BP 118/70
[2019-10-03] MEDS: PIOGLITAZONE HCL 30 MG TABLET PO SCH (08:49)
[2019-10-03] MEDS: CHOLECALCIFEROL (VIT D3) 1,000 UNITS TABLET PO SCH (08:50)
[2019-10-03] MEDS: PredniSONE 10 MG TABLET PO SCH ×2 (08:51→21:59)
[2019-10-03] MEDS: METOPROLOL TARTRATE 25 MG TABLET PO SCH (08:51)
[2019-10-03] MEDS: ATORVASTATIN CALCIUM 40 MG TABLET PO SCH (08:51)
[2019-10-03] MEDS: FINASTERIDE 5 MG TABLET PO SCH (08:52)
[2019-10-03] MEDS: ALLOPURINOL 100 MG TABLET PO SCH (08:52)
[2019-10-03] MEDS: APIXABAN 2.5 MG TABLET PO SCH ×2 (08:52→21:59)
[2019-10-03] MEDS: FERROUS SULFATE 325 MG EC TABLET PO SCH ×2 (08:52→21:59)
[2019-10-03] MEDS: DOCUSATE SODIUM 100 MG CAPSULE PO SCH ×2 (08:52→21:59)
[2019-10-03] MEDS: TAMSULOSIN HCL 0.4 MG CAPSULE PO SCH (08:52)
[2019-10-03] MEDS: PANTOPRAZOLE SODIUM 40 MG DR TABLET PO SCH (08:53)
[2019-10-03] MEDS: HydrALAZINE HCL 25 MG TABLET PO SCH ×4 (08:53→21:59)
[2019-10-03 11:08] VITALS: BP 150/82
[2019-10-03 11:32] VITALS: BP 157/78
[2019-10-03 15:07] VITALS: BP 124/78
[2019-10-03 20:18] VITALS: BP 135/58
[2019-10-04 00:22] VITALS: BP 145/76
[2019-10-04] MEDS: LEVOFLOXACIN 250 MG/D5% WATER 50 ML IV SCH (03:19)
[2019-10-04 04:48] VITALS: BP 155/98
[2019-10-04 07:47] VITALS: BP 151/79
[2019-10-04] MEDS: HydrALAZINE HCL 25 MG TABLET PO SCH ×4 (08:18→20:28)
[2019-10-04] MEDS: TAMSULOSIN HCL 0.4 MG CAPSULE PO SCH (08:18)
[2019-10-04] MEDS: PredniSONE 10 MG TABLET PO SCH ×2 (08:18→20:28)
[2019-10-04] MEDS: PIOGLITAZONE HCL 30 MG TABLET PO SCH (08:18)
[2019-10-04] MEDS: APIXABAN 2.5 MG TABLET PO SCH ×2 (08:18→20:28)
[2019-10-04] MEDS: FERROUS SULFATE 325 MG EC TABLET PO SCH ×2 (08:18→20:28)
[2019-10-04] MEDS: DOCUSATE SODIUM 100 MG CAPSULE PO SCH ×2 (08:18→20:28)
[2019-10-04] MEDS: PANTOPRAZOLE SODIUM 40 MG DR TABLET PO SCH (08:19)
[2019-10-04] MEDS: METOPROLOL TARTRATE 25 MG TABLET PO SCH (08:19)
[2019-10-04] MEDS: FINASTERIDE 5 MG TABLET PO SCH (08:19)
[2019-10-04] MEDS: ATORVASTATIN CALCIUM 40 MG TABLET PO SCH (08:19)
[2019-10-04] MEDS: CHOLECALCIFEROL (VIT D3) 1,000 UNITS TABLET PO SCH (08:20)
[2019-10-04 09:41] LABS: CALCIUM, TOTAL 9.1 mg/dL (8.8-10.5); CREATININE 1.86 mg/dL (0.60-1.30); POTASSIUM 4.6 mmol/L (3.5-5.1)
[2019-10-04] MEDS ORDERED: SODIUM CHLORIDE 0.9% 500 ML IV ONE (10:30)
[2019-10-04] MEDS ORDERED: DEXTROSE 50%-WATER 25 GM/50 ML SYRINGE IVP PRN ×2 (10:45)
[2019-10-04] MEDS ORDERED: INSULIN LISPRO 100 UNITS/ML SQ ONE ×2 (10:45→12:45)
[2019-10-04] MEDS ORDERED: INSULIN LISPRO 100 UNITS/ML SQ PRN (10:45)
[2019-10-04 11:01] VITALS: BP 156/86
[2019-10-04] MEDS: INSULIN LISPRO 100 UNITS/ML SQ PRN ×3 (12:09→20:33)
[2019-10-04 15:21] VITALS: BP 139/74
[2019-10-04 20:00] VITALS: BP 143/77
[2019-10-05] MEDS: LEVOFLOXACIN 250 MG/D5% WATER 50 ML IV SCH ×2 (00:06→22:58)
[2019-10-05] MEDS ORDERED: SODIUM CHLORIDE 0.9% 250 ML IV ONE (00:11)
[2019-10-05 00:39] LABS: GLUCOMETER DEV NAME(LOC) 5N.2; GLUCOSE,POINT OF CARE 533 MG/DL (70-110)
[2019-10-05 00:39] LABS: GLUCOMETER DEV NAME(LOC) 5N.1; GLUCOSE,POINT OF CARE 293 MG/DL (70-110)
[2019-10-05 02:48] LABS: GLUCOMETER DEV NAME(LOC) 5S.2A; GLUCOSE,POINT OF CARE 243 MG/DL (70-110)
[2019-10-05 04:42] VITALS: BP 118/68
[2019-10-05] MEDS: INSULIN LISPRO 100 UNITS/ML SQ PRN ×5 (05:46→23:58)
[2019-10-05 06:21] LABS: CALCIUM, TOTAL 8.4 mg/dL (8.8-10.5); CREATININE 1.78 mg/dL (0.60-1.30); POTASSIUM 4.3 mmol/L (3.5-5.1)
[2019-10-05 08:02] VITALS: BP 147/85
[2019-10-05 08:07] LABS: GLUCOMETER DEV NAME(LOC) 5N.2; GLUCOSE,POINT OF CARE 432 MG/DL (70-110)
[2019-10-05] MEDS: DOCUSATE SODIUM 100 MG CAPSULE PO SCH ×2 (08:15→19:57)
[2019-10-05] MEDS: APIXABAN 2.5 MG TABLET PO SCH ×2 (08:15→19:54)
[2019-10-05] MEDS: ATORVASTATIN CALCIUM 40 MG TABLET PO SCH (08:15)
[2019-10-05] MEDS: FERROUS SULFATE 325 MG EC TABLET PO SCH ×2 (08:15→19:54)
[2019-10-05] MEDS: TAMSULOSIN HCL 0.4 MG CAPSULE PO SCH (08:15)
[2019-10-05] MEDS: HydrALAZINE HCL 25 MG TABLET PO SCH ×4 (08:15→22:57)
[2019-10-05] MEDS: PredniSONE 10 MG TABLET PO SCH ×2 (08:15→19:54)
[2019-10-05] MEDS: PIOGLITAZONE HCL 30 MG TABLET PO SCH (08:15)
[2019-10-05] MEDS: METOPROLOL TARTRATE 25 MG TABLET PO SCH (08:16)
[2019-10-05] MEDS: PANTOPRAZOLE SODIUM 40 MG DR TABLET PO SCH (08:16)
[2019-10-05] MEDS: FINASTERIDE 5 MG TABLET PO SCH (08:16)
[2019-10-05] MEDS: CHOLECALCIFEROL (VIT D3) 1,000 UNITS TABLET PO SCH (08:16)
[2019-10-05 11:15] VITALS: BP 145/76
[2019-10-05] MEDS ORDERED: DEXTROSE 50%-WATER 25 GM/50 ML SYRINGE IVP PRN (11:45)
[2019-10-05] MEDS: INSULIN GLARGINE,HUM.REC.ANLOG 100 UNITS/ML SQ SCH ×2 (12:41→19:55)
[2019-10-05 15:41] VITALS: BP 142/71
[2019-10-05 16:01] LABS: GLUCOMETER DEV NAME(LOC) 5N.1; GLUCOSE,POINT OF CARE 433 MG/DL (70-110)
[2019-10-05 19:50] LABS: GLUCOMETER DEV NAME(LOC) 5N.2; GLUCOSE,POINT OF CARE 408 MG/DL (70-110)
[2019-10-05 20:04] VITALS: BP 131/72
[2019-10-06 00:26] VITALS: BP 137/72
[2019-10-06] MEDS: INSULIN LISPRO 100 UNITS/ML SQ PRN ×3 (04:13→12:16)
[2019-10-06 04:31] VITALS: BP 140/79
[2019-10-06 06:57] LABS: BASOPHILS % (AUTO) 0.4 % (0.0-2.0); EOSINOPHILS % (AUTO) 0.6 % (1.0-6.0); HEMATOCRIT 33.6 % (41-53); HEMOGLOBIN 11.3 g/dL (13.5-17.5); LYMPHOCYTES # (AUTO) 1.6 K/uL (1.0-4.8); LYMPHOCYTES % (AUTO) 22.5 % (22.0-44.0); MEAN CORPUSCULAR HGB CONC 33.7 G/dL (31.0-37.0); MEAN CORPUSCULAR VOLUME 89 fL (80-100); MONOCYTES # (AUTO) 0.3 K/uL (0.1-1.0); MONOCYTES % (AUTO) 4.7 % (2.0-9.0); NEUTROPHILS # (AUTO) 5.1 K/uL (1.8-7.7); NEUTROPHILS % (AUTO) 71.8 % (40.0-70.0); PLATELET COUNT (AUTO) 322 K/uL (150-450); RED BLOOD CELL COUNT(AUTO) 3.77 MIL/uL (4.50-5.90); RED CELL DISTRIBUTION WIDTH 13.4 % (11.5-14.5)
[2019-10-06 07:20] LABS: CALCIUM, TOTAL 8.6 mg/dL (8.8-10.5); CREATININE 1.45 mg/dL (0.60-1.30); POTASSIUM 3.7 mmol/L (3.5-5.1)
[2019-10-06 07:53] VITALS: BP 151/85
[2019-10-06] MEDS: PredniSONE 10 MG TABLET PO SCH (08:22)
[2019-10-06] MEDS: DOCUSATE SODIUM 100 MG CAPSULE PO SCH (08:22)
[2019-10-06] MEDS: METOPROLOL TARTRATE 25 MG TABLET PO SCH (08:22)
[2019-10-06] MEDS: CHOLECALCIFEROL (VIT D3) 1,000 UNITS TABLET PO SCH (08:22)
[2019-10-06] MEDS: HydrALAZINE HCL 25 MG TABLET PO SCH ×2 (08:22→13:28)
[2019-10-06] MEDS: TAMSULOSIN HCL 0.4 MG CAPSULE PO SCH (08:22)
[2019-10-06] MEDS: PIOGLITAZONE HCL 30 MG TABLET PO SCH (08:22)
[2019-10-06] MEDS: FERROUS SULFATE 325 MG EC TABLET PO SCH (08:22)
[2019-10-06] MEDS: ATORVASTATIN CALCIUM 40 MG TABLET PO SCH (08:23)
[2019-10-06] MEDS: FINASTERIDE 5 MG TABLET PO SCH (08:23)
[2019-10-06] MEDS: APIXABAN 2.5 MG TABLET PO SCH (08:23)
[2019-10-06] MEDS: PANTOPRAZOLE SODIUM 40 MG DR TABLET PO SCH (08:23)
[2019-10-06] MEDS: INSULIN GLARGINE,HUM.REC.ANLOG 100 UNITS/ML SQ SCH (08:24)
[2019-10-06 13:24] LABS: GLUCOMETER DEV NAME(LOC) 5N.2; GLUCOSE,POINT OF CARE 291 MG/DL (70-110)
[2019-10-06 13:25] LABS: GLUCOMETER DEV NAME(LOC) 5N.2; GLUCOSE,POINT OF CARE 251 MG/DL (70-110)
[2019-10-06 13:37] LABS: GLUCOMETER DEV NAME(LOC) 5N.1; GLUCOSE,POINT OF CARE 173 MG/DL (70-110)
[2019-10-06 13:42] LABS: GLUCOMETER DEV NAME(LOC) 5N.1; GLUCOSE,POINT OF CARE 148 MG/DL (70-110)
[2019-10-06 13:51] LABS: GLUCOMETER DEV NAME(LOC) 5N.1; GLUCOSE,POINT OF CARE 277 MG/DL (70-110)
[2019-10-06] MEDS ORDERED: PRED10 PO (14:40)
== END 2019-10-06 15:10 | disposition home or self-care (01) | DRG 602 ==
LOC: EMS 16:49 → 5S 19:44
PROVIDERS: ADMIT Internal Medicine; ATTEND Internal Medicine
DX: L03.032 Cellulitis of left toe (principal); I50.33 Acute on chronic diastolic (congestive) heart failure; N17.9 Acute kidney failure, unspecified; I13.0 Hypertensive heart and chronic kidney disease with heart failure and stage 1 through stage 4 chronic kidney disease, or unspecified chronic kidney disease; I48.20 Chronic atrial fibrillation, unspecified; E87.1 Hypo-osmolality and hyponatremia; N18.4 Chronic kidney disease, stage 4 (severe); E11.22 Type 2 diabetes mellitus with diabetic chronic kidney disease; M10.9 Gout, unspecified; I49.5 Sick sinus syndrome; N40.0 Benign prostatic hyperplasia without lower urinary tract symptoms; E78.5 Hyperlipidemia, unspecified; D64.9 Anemia, unspecified; E11.65 Type 2 diabetes mellitus with hyperglycemia; E78.00 Pure hypercholesterolemia, unspecified; T38.0X5A Adverse effect of glucocorticoids and synthetic analogues, initial encounter; Z79.01 Long term (current) use of anticoagulants; Z86.11 Personal history of tuberculosis; Z79.899 Other long term (current) drug therapy; Z79.4 Long term (current) use of insulin; Z95.0 Presence of cardiac pacemaker; Y92.238 Other place in hospital as the place of occurrence of the external cause
CPT/HCPCS: 84550; 87040; 93005; 93306; 93970; 97110; 97116; 97162; 97165; 97530; 97535; J0696; J1815; J1940; J1956; J3370; J3490; J7040; J7050; J7060

== ENCOUNTER → 2019-12-22 | Outpatient (CLI) | payer MEDICARE, OTHER ==
[~2019-12-22] MED LIST changes: +ALLO100T PO; -AMLO10TA7 PO; +APIX2.5T PO; -ASPI-1182 PO; -ATOR20TA86 PO; +ATOR40TA28 PO; +FERR-82 PEG; +FINA-27 PO; +FURO40 PO; -HYDR10TA31 PO; +HYDR25TA84 PO; -INSLAN SQ; +INSU200I SQ; -ISON300 PO; +METO25 PO; +PIOG30TA10 PO; +PRED10 PO; -PYRI50 PO; -RIFA300 PO; -SPIR25 PO; +TAMS-13 PO; -VALS160T2 PO
[2019-12-22 10:48] LABS: HEMATOCRIT 35.9 % (41-53)
[2019-12-22 10:59] LABS: HEMOGLOBIN A1C 11.8 % (4.5-6.2)
[2019-12-22 11:01] LABS: CALCIUM, TOTAL 8.8 mg/dL (8.8-10.5); CREATININE 1.44 mg/dL (0.60-1.30); POTASSIUM 3.3 mmol/L (3.5-5.1)
[2019-12-27 09:32] LABS: COLLECTION TIME,URINE 24 HR; SODIUM TIMED,URINE 53 mmol/L (20-110); SODIUM URINE, 24HR CALC 159 mmol/24H (40-220)
== END | disposition home or self-care (01) ==
LOC: LABPV 09:41
PROVIDERS: ATTEND Internal Medicine Nephrology
DX: E11.22 Type 2 diabetes mellitus with diabetic chronic kidney disease (principal); N18.9 Chronic kidney disease, unspecified; D63.1 Anemia in chronic kidney disease
CPT/HCPCS: 81050; 83036; 84300; 85014; 85018

== ENCOUNTER 2022-05-18 20:18 | Emergency (ER) | payer MEDICARE, OTHER ==
[~2022-05-18] VITALS: Ht 167.6 cm; Wt 75.0 kg
[~2022-05-18 20:18] MED LIST changes: +ALLO-97 PO; -ALLO100T PO; -FERR-82 PEG; +FERR-82 PO; +PRED-729 PO; -PRED10 PO
[2022-05-18] MEDS ORDERED: INSU3INS3 SQ (20:31)
[2022-05-18] MEDS ORDERED: INSU100I3 SQ (20:31)
[2022-05-18] MEDS ORDERED: CHOL25TA4 PO (20:31)
[2022-05-18] MEDS ORDERED: METF-1211 PO (20:31)
[2022-05-18] MEDS ORDERED: LOSA-381 PO (20:31)
[2022-05-18] MEDS ORDERED: EMPA10TA PO (20:31)
[2022-05-18] MEDS ORDERED: METO25XL PO (20:31)
[2022-05-18 20:41] LABS: GLUCOSE,POINT OF CARE > 600 MG/DL (70-110)
[2022-05-18] MEDS ORDERED: SODIUM CHLORIDE 0.9% 1,000 ML IV ONE ×2 (20:45→21:45)
[2022-05-18 21:11] LABS: BASOPHILS % (AUTO) 0.4 % (0.0-2.0); EOSINOPHILS % (AUTO) 1.5 % (1.0-6.0); HEMATOCRIT 40.1 % (41-53); HEMOGLOBIN 13.2 g/dL (13.5-17.5); LYMPHOCYTES # (AUTO) 1.4 K/uL (1.0-4.8); LYMPHOCYTES % (AUTO) 20.8 % (22.0-44.0); MEAN CORPUSCULAR HEMOGLOBIN 28.3 pg (26.0-34.0); MEAN CORPUSCULAR VOLUME 86 fL (80-100); MONOCYTES # (AUTO) 0.5 K/uL (0.1-1.0); MONOCYTES % (AUTO) 7.3 % (2.0-9.0); NEUTROPHILS # (AUTO) 4.7 K/uL (1.8-7.7); PLATELET COUNT (AUTO) 165 K/uL (150-450); RED BLOOD CELL COUNT(AUTO) 4.67 MIL/uL (4.50-5.90); RED CELL DISTRIBUTION WIDTH 15.4 % (11.5-14.5)
[2022-05-18 21:24] LABS: PROTHROMBIN TIME 10.5 SEC (9.4-11.6)
[2022-05-18 21:34] LABS: ALBUMIN 3.7 g/dL (3.4-5.0); BILIRUBIN,TOTAL 0.6 mg/dL (0.1-1.0); CALCIUM, TOTAL 9.3 mg/dL (8.8-10.5); CREATININE 2.39 mg/dL (0.60-1.30); POTASSIUM 4.7 mmol/L (3.5-5.1); TOTAL PROTEIN, SERUM 8.3 g/dL (6.4-8.2)
[2022-05-18] MEDS ORDERED: POTASSIUM CHLORIDE 20 MEQ ER TABLET PO ONE (21:45)
[2022-05-18] MEDS ORDERED: INSULIN REGULAR, HUMAN 100 UNITS/ML IVP ONE (21:45)
[2022-05-18 22:19] LABS: APPEARANCE,URINE CLEAR (CLEAR); BILIRUBIN,URINE NEGATIVE (NEGATIVE); GLUCOSE, URINE (UA) >=1000 mg/dL (NEGATIVE); KETONES,URINE TRACE mg/dL (NEGATIVE); LEUKOCYTE ESTERASE ,URINE NEGATIVE (NEGATIVE); NITRATE,URINE NEGATIVE (NEGATIVE); OCCULT BLOOD,URINE NEGATIVE (NEGATIVE); PROTEIN,URINE NEGATIVE (NEGATIVE); UROBILINOGEN,URINE <=1.0 mg/dL (<=1.0)
[2022-05-18 22:25] LABS: BACTERIA,URINE None Seen /HPF (None Seen); RBC,URINE 0-2 /HPF (0-2); SQUAMOUS EPITHELIAL CELL,UR Rare /LPF (None Seen); WBC,URINE 0-2 /HPF (0-5)
[2022-05-18] MEDS ORDERED: SODIUM CHLORIDE 0.9% 500 ML IV ONE (22:45)
[2022-05-18 22:52] LABS: GLUCOMETER DEV NAME(LOC) ERT.5; GLUCOSE,POINT OF CARE 493 MG/DL (70-110)
[2022-05-18 23:38] VITALS: BP 125/60
[2022-05-19 00:27] LABS: GLUCOMETER DEV NAME(LOC) ERT.5; GLUCOSE,POINT OF CARE 362 MG/DL (70-110)
== END 2022-05-19 00:42 | disposition home or self-care (01) ==
LOC: EMS 20:18
DX: E11.65 Type 2 diabetes mellitus with hyperglycemia (principal); E78.00 Pure hypercholesterolemia, unspecified; I10 Essential (primary) hypertension; M10.9 Gout, unspecified; Z86.11 Personal history of tuberculosis
CPT/HCPCS: 36415; 71045; 80053; 81001; 82962; 83605; 83690; 85025; 85610; 85730; 93005; 96361; 96374; 99285; J1815; J7040

== ENCOUNTER 2022-05-20 00:38 | Emergency (ER) | payer MEDICARE, OTHER ==
[~2022-05-20] VITALS: Ht 167.6 cm; Wt 75.0 kg
[~2022-05-20 00:38] MED LIST changes: -CHOL100018 PO; +CHOL25TA4 PO; +EMPA10TA PO; +INSU100I3 SQ; -INSU200I SQ; +INSU3INS3 SQ; +LOSA-381 PO; +METF-1211 PO; -METO25 PO; +METO25XL PO; -PRED-729 PO
[2022-05-20] MEDS ORDERED: INSULIN REGULAR, HUMAN 100 UNITS/ML SQ ONE (01:30)
[2022-05-20 02:16] LABS: BASOPHILS % (AUTO) 1.1 % (0.0-2.0); EOSINOPHILS % (AUTO) 2.2 % (1.0-6.0); HEMATOCRIT 37.3 % (41-53); HEMOGLOBIN 12.4 g/dL (13.5-17.5); LYMPHOCYTES # (AUTO) 1.6 K/uL (1.0-4.8); LYMPHOCYTES % (AUTO) 26.3 % (22.0-44.0); MEAN CORPUSCULAR HEMOGLOBIN 28.3 pg (26.0-34.0); MEAN CORPUSCULAR HGB CONC 33.3 G/dL (31.0-37.0); MEAN CORPUSCULAR VOLUME 85 fL (80-100); MONOCYTES # (AUTO) 0.5 K/uL (0.1-1.0); MONOCYTES % (AUTO) 8.2 % (2.0-9.0); NEUTROPHILS # (AUTO) 3.7 K/uL (1.8-7.7); NEUTROPHILS % (AUTO) 62.2 % (40.0-70.0); PLATELET COUNT (AUTO) 151 K/uL (150-450); RED BLOOD CELL COUNT(AUTO) 4.39 MIL/uL (4.50-5.90); RED CELL DISTRIBUTION WIDTH 15.1 % (11.5-14.5)
[2022-05-20 02:25] LABS: CALCIUM, TOTAL 9.1 mg/dL (8.8-10.5); CREATININE 2.14 mg/dL (0.60-1.30); POTASSIUM 4.8 mmol/L (3.5-5.1)
[2022-05-20 02:31] LABS: ALBUMIN 3.5 g/dL (3.4-5.0); BILIRUBIN,TOTAL 0.5 mg/dL (0.1-1.0); TOTAL PROTEIN, SERUM 7.7 g/dL (6.4-8.2)
[2022-05-20 02:59] VITALS: BP 142/74
[2022-05-20 03:56] LABS: GLUCOMETER DEV NAME(LOC) ERT.5; GLUCOSE,POINT OF CARE 301 MG/DL (70-110)
== END 2022-05-20 03:59 | disposition home or self-care (01) ==
LOC: EMS 00:40
DX: E11.65 Type 2 diabetes mellitus with hyperglycemia (principal); I10 Essential (primary) hypertension; E78.00 Pure hypercholesterolemia, unspecified; I48.91 Unspecified atrial fibrillation; Z79.4 Long term (current) use of insulin; Z79.899 Other long term (current) drug therapy
CPT/HCPCS: 36415; 80053; 82948; 82962; 85025; 99283; J1815

== ENCOUNTER 2022-12-26 03:02 | Emergency (ER) | payer MEDICARE, OTHER ==
[~2022-12-26] VITALS: Ht 162.6 cm; Wt 77.3 kg
[~2022-12-26 03:02] MED LIST changes: -EMPA10TA PO; +EMPA10TA3 PO
[2022-12-26] MEDS ORDERED: ACETAMINOPHEN 500 MG TABLET PO ONE ×2 (03:30)
[2022-12-26] MEDS ORDERED: ONDANSETRON HCL 4 MG TABLET PO ONE (04:00)
[2022-12-26 04:12] LABS: BASOPHILS % (AUTO) 0.7 % (0.0-2.0); EOSINOPHILS % (AUTO) 1.4 % (1.0-6.0); HEMATOCRIT 25.9 % (41-53); HEMOGLOBIN 8.9 g/dL (13.5-17.5); LYMPHOCYTES # (AUTO) 1.2 K/uL (1.0-4.8); LYMPHOCYTES % (AUTO) 22.2 % (22.0-44.0); MEAN CORPUSCULAR HEMOGLOBIN 31.4 pg (26.0-34.0); MEAN CORPUSCULAR HGB CONC 34.3 G/dL (31.0-37.0); MEAN CORPUSCULAR VOLUME 92 fL (80-100); MONOCYTES # (AUTO) 0.4 K/uL (0.1-1.0); MONOCYTES % (AUTO) 6.7 % (2.0-9.0); NEUTROPHILS # (AUTO) 3.8 K/uL (1.8-7.7); PLATELET COUNT (AUTO) 139 K/uL (150-450); RED BLOOD CELL COUNT(AUTO) 2.84 MIL/uL (4.50-5.90)
[2022-12-26 04:18] LABS: CALCIUM, TOTAL 8.8 mg/dL (8.8-10.5); CREATININE 2.31 mg/dL (0.60-1.30); POTASSIUM 4.9 mmol/L (3.5-5.1)
[2022-12-26 04:23] LABS: INR 1.6 (0.9-1.1); PROTHROMBIN TIME 16.7 SEC (9.4-11.6)
[2022-12-26 04:24] LABS: ALBUMIN 3.6 g/dL (3.4-5.0); BILIRUBIN,TOTAL 0.3 mg/dL (0.1-1.0); TOTAL PROTEIN, SERUM 8.2 g/dL (6.4-8.2)
[2022-12-26] MEDS ORDERED: LIDOCAINE 5% TRANSDERMAL PATCH TD ONE (06:00)
[2022-12-26 07:28] LABS: APPEARANCE,URINE CLEAR (CLEAR); BILIRUBIN,URINE NEGATIVE (NEGATIVE); GLUCOSE, URINE (UA) >=1000 mg/dL (NEGATIVE); KETONES,URINE NEGATIVE (NEGATIVE); LEUKOCYTE ESTERASE ,URINE NEGATIVE (NEGATIVE); NITRATE,URINE NEGATIVE (NEGATIVE); OCCULT BLOOD,URINE MODERATE (NEGATIVE); PH,URINE 7.5 (5.0-8.0); PROTEIN,URINE TRACE mg/dL (NEGATIVE); SPECIFIC GRAVITIY, URINE 1.012 (1.003-1.030); UROBILINOGEN,URINE <=1.0 mg/dL (<=1.0)
[2022-12-26 08:30] LABS: BACTERIA,URINE None Seen /HPF (None Seen); SQUAMOUS EPITHELIAL CELL,UR None Seen /LPF (None Seen); WBC,URINE None Seen /HPF (0-5)
[2022-12-26 13:04] VITALS: BP 126/74
== END 2022-12-26 13:48 | disposition home or self-care (01) ==
LOC: EDUNIT# 03:02 → EMS 03:04
DX: N28.9 Disorder of kidney and ureter, unspecified (principal); I48.91 Unspecified atrial fibrillation; E11.9 Type 2 diabetes mellitus without complications; E78.00 Pure hypercholesterolemia, unspecified; I10 Essential (primary) hypertension
CPT/HCPCS: 99285; 74176; 80053; 81001; 82962; 83690; 85025; 85610; 85730; 36415; Q0162

== ENCOUNTER → 2023-02-25 | Outpatient (CLI) | payer MEDICARE, OTHER ==
[~2023-02-25] MED LIST changes: -APIX2.5T PO; -FERR-82 PO; -HYDR25TA84 PO; -ICOS1CAP PO; -METF-1211 PO; -TAMS-13 PO
== END | disposition home or self-care (01) ==
LOC: LABMN 12:14
PROVIDERS: ATTEND Internal Medicine Nephrology
DX: E83.51 Hypocalcemia (principal)
CPT/HCPCS: 82306; 82330